=== PATIENT | male | born 1970 | race Caucasian/White ===

== ENCOUNTER 2024-11-21 06:46 | Day surgery (SDC) | payer OTHER ==
[2024-11-21] MEDS ORDERED: Propofol 200 MG/20 ML SDV ONE (07:21)
[2024-11-21] MEDS ORDERED: Midazolam 1 MG/ML 2 ML SDV ONE (07:22)
[2024-11-21] MEDS ORDERED: fentaNYL 100 MCG/2 ML SDV ONE (07:22)
[2024-11-21] MEDS: Lactated Ringers 1,000 ML IV SCH (07:30)
== END 2024-11-21 09:29 | disposition home or self-care (01) ==
LOC: JP.SDS 06:46
PROVIDERS: ATTEND Family Medicine
DX: Z12.11 Encounter for screening for malignant neoplasm of colon (principal); D12.8 Benign neoplasm of rectum; Z88.0 Allergy status to penicillin
CPT/HCPCS: 00811-QZ; 88305; J2250; J2704; J3010; J7120